=== PATIENT | female | born 1980 | race Caucasian/White ===

== ENCOUNTER 2020-01-06 13:58 | Emergency (ER) | payer BC, MEDICAID ==
[~2020-01-06] VITALS: Ht 170.2 cm; Wt 117.7 kg
[2020-01-06 14:42] LABS: BASOPHILS # (AUTO) 0.1 X10'3 (0-0.2); BASOPHILS % (AUTO) 0.8 % (0-1); EOSINOPHILS # (AUTO) 0.3 X10'3 (0-0.9); EOSINOPHILS % (AUTO) 3.6 % (0-6); HEMATOCRIT 41.9 % (35.0-45.0); HEMOGLOBIN 14.7 g/dl (12.0-16.0); LYMPHOCYTES # (AUTO) 2.2 X10'3 (1.1-4.8); LYMPHOCYTES % (AUTO) 27.8 % (21-51); MEAN CORPUSCULAR HGB CONC 35.1 g/dL (33.0-36.5); MEAN CORPUSCULAR VOLUME 88.2 FL (78-98); MEAN PLATELET VOLUME 8.1 FL (7.4-10.4); MONOCYTES # (AUTO) 0.6 X10'3 (0-0.9); NEUTROPHILS # (AUTO) 4.8 X10'3 (1.8-7.7); NEUTROPHILS % (AUTO) 60.8 % (42-75); PLATELET COUNT 386 X10'3 (140-440); RED BLOOD COUNT 4.74 X10'6 (4.20-5.60); RED CELL DISTRIBUTION WIDTH 12.9 % (11.5-14.5)
[2020-01-06 14:51] LABS: ALANINE AMINOTRANSFERASE 57 U/L (12-78); ALBUMIN 4.2 G/DL (3.4-5.0); ALBUMIN/GLOBULIN RATIO 1.1 (1.1-1.5); ANION GAP 9 (8-16); ASPARTATE AMINO TRANSFERASE 27 U/L (10-37); BILIRUBIN,TOTAL 0.3 MG/DL (0.1-1.0); BLOOD UREA NITROGEN 12 MG/DL (7-18); BUN/CREATININE RATIO 13.8 (6.6-38.0); CHLORIDE 101 MMOL/L (99-107); CREATININE 0.87 MG/DL (0.40-0.90); GLUCOSE 123 MG/DL (70-104); SODIUM 140 MMOL/L (135-145); TOTAL CARBON DIOXIDE 30.3 MMOL/L (24-32); eGFR 73 ML/MIN
[2020-01-06 15:09] LABS: ALKALINE PHOSPHATASE 93 IU/L (46-116)
[2020-01-06] MEDS ORDERED: potassium Cl 20 mEq SR tablet PO STA ×2 (16:56→18:16)
[2020-01-06 18:48] VITALS: BP 119/72
== END 2020-01-06 18:55 | disposition home or self-care (01) ==
LOC: ER 13:59
DX: R00.2 Palpitations (principal); E87.6 Hypokalemia; R42 Dizziness and giddiness; R06.02 Shortness of breath; F17.200 Nicotine dependence, unspecified, uncomplicated
CPT/HCPCS: 36415; 71045; 80053; 84439; 84443; 84484; 85025; 93005; 99285

== ENCOUNTER 2023-05-26 14:12 | Emergency (ER) | payer BC, MEDICAID ==
[~2023-05-26] VITALS: Ht 170.2 cm; Wt 120.5 kg
[2023-05-26 14:34] VITALS: BP 137/78; PULSE 91; RESP 15; TEMP 98.3; O2SAT 96
[2023-05-26] MEDS ORDERED: IBUP-1986 PO (17:06)
== END 2023-05-26 17:38 | disposition home or self-care (01) ==
LOC: ER 14:13
DX: M25.532 Pain in left wrist (principal); Z91.09 Other allergy status, other than to drugs and biological substances; Z79.2 Long term (current) use of antibiotics
CPT/HCPCS: 29125; 73110; 99283